=== PATIENT | female | born 1980 | race Caucasian/White ===

== ENCOUNTER 2020-06-26 13:01 | Emergency (ER) | payer MEDICAID ==
[~2020-06-26] VITALS: Ht 154.9 cm; Wt 72.0 kg
[~2020-06-26 13:01] MED LIST: proair
[2020-06-26] MEDS ORDERED: KETOROLAC 60MG/2ML VIAL IM ONE (14:15)
[2020-06-26 14:26] LABS: CLARITY URINE CLEAR (CLEAR); COLOR URINE YELLOW (YELLOW); KETONES URINE NEGATIVE (NEGATIVE); LEUKOCYTE ESTERASE URINE NEGATIVE (NEGATIVE); NITRITE URINE NEGATIVE (NEGATIVE); OCCULT BLOOD URINE 2+ (NEGATIVE); PH URINE 5.5 (4.5-8.0); PROTEIN URINE NEGATIVE (NEGATIVE); SPECIFIC GRAVITY URINE 1.018 (1.005-1.030); UROBILINOGEN URINE 0.2 E.U./dL (0.2-1.0)
[2020-06-26 14:29] VITALS: BP 112/51
== END 2020-06-26 16:01 | disposition home or self-care (01) ==
LOC: ER 13:01
DX: R51.9 Headache, unspecified (principal); J45.909 Unspecified asthma, uncomplicated; Z90.49 Acquired absence of other specified parts of digestive tract
CPT/HCPCS: 81003; 81025; 96372; 99283; J1885; Z7610

== ENCOUNTER 2021-11-18 12:41 | Emergency (ER) | payer MEDICAID ==
[~2021-11-18] VITALS: Ht 157.5 cm; Wt 70.0 kg
[2021-11-18] MEDS ORDERED: KETOROLAC 60MG/2ML VIAL IM ONE (13:00)
[2021-11-18 13:15] VITALS: BP 110/57
[2021-11-18] MEDS ORDERED: IBUP-2029 MT (15:54)
== END 2021-11-18 16:04 | disposition home or self-care (01) ==
LOC: ER 12:41
DX: S09.8XXA Other specified injuries of head, initial encounter (principal); S10.93XA Contusion of unspecified part of neck, initial encounter; J45.909 Unspecified asthma, uncomplicated; V43.52XA Car driver injured in collision with other type car in traffic accident, initial encounter; Y93.89 Activity, other specified; Y92.410 Unspecified street and highway as the place of occurrence of the external cause; Z88.0 Allergy status to penicillin
CPT/HCPCS: 70450; 72125; 96372; 99284; J1885